=== PATIENT | male | born 1980 | race Caucasian/White ===

== ENCOUNTER → 2016-11-24 | Day surgery (SDC) | payer BC ==
[~2016-11-24] MED LIST: ADVIL PM CAPLE1 EACH PO; APAP; DULCOLAX; LEXAPRO PO; NO MEDICATIONS; PANTOPRAZOLE SO20 MG PO; VOLTAREN75 MG PO; [UNRECOGNIZED DRUG - OTHER]
--- NOTE | ~2016-11-24 | OR ---
Unit #: [id number] #: [id number] Patient: LILA CARDENAS [id number] [facility]. [place], [place] [address] [id number] MR#: [id number] NAME: LILA CARDENAS ROOM: Date of Procedure: 11/24/2016 Admission Date: 11/24/2016 Surgeon: Boubacar Ro M.D. : 1980 Attending Physician: Boubacar Ro M.D. Primary Care Physician: Collins Romero M.D. OPERATIVE REPORT PRIMARY CARE PHYSICIAN Collins Romero M.D. PREOPERATIVE DIAGNOSES Colorectal cancer surveillance. The patient has personal history of colon polyps. PROCEDURES PERFORMED Colonoscopy up to cecum and terminal ileum with excellent preparation and good visualization. POSTOPERATIVE DIAGNOSES Completely normal examination up to cecum and terminal ileum. The quality of the prep was good. No polyps were seen. The patient did not have any diverticulosis nor any hemorrhoids. RECOMMENDATIONS Repeat colonoscopy in 5 years. SEDATION USED MAC. DESCRIPTION OF PROCEDURE Following detailed explanation of the potential risks and complications of a colonoscopy, namely perforation, bleeding, and complications related to sedation, the patient was brought to GI lab and laid in the left lateral decubitus position. A digital rectal examination was performed, which was normal. Lubricated tip of the Olympus video colonoscope was inserted through the anus and advanced under direct vision. The scope was advanced and passed up to sigmoid into descending colon. No diverticula were seen in this area. The scope tip was then navigated all the way up to cecum with visualization of ileocecal valve and the appendiceal orifice. Preparation was excellent with good visualization and photodocumentation was obtained. Last few inches of terminal ileum also visualized after intubation of the ileocecal valve and appeared normal. Successive segments of the colonic mucosa were examined upon withdrawal and appeared unremarkable. There being no polyps, mass lesions, AVMs, or diverticula. The patient did not have any hemorrhoids at anal verge. The scope was then withdrawn. The patient returned to recovery area. He tolerated the procedure without any postprocedure complications. Unit #: [id number] #: [id number] Patient: LILA CARDENAS Dictated by... Jenna Shaikh/karla TD: 11/24/2016 20:30 JOB #: [id number] CC: Collins Romero M.D. OPERATIVE REPORT Page 1 of 1 X Boubacar Ro MD PROCEDURE OPERATIVE NOTE
== END | disposition home or self-care (01) ==
LOC: COPS 06:45
DX: Z12.11 Encounter for screening for malignant neoplasm of colon (principal); F41.9 Anxiety disorder, unspecified; Z86.010 Personal history of colon polyps; Z79.899 Other long term (current) drug therapy
CPT/HCPCS: J2250